=== PATIENT | male | born 1950 | race African-American/Black ===

== ENCOUNTER 2019-07-14 03:04 | Emergency (ER) | payer MEDICARE ==
[2019-07-14 03:27] LABS: ABSOLUTE EOSINOPHILS # (AUTO) 0.1 10^3/uL (0.0-0.6); ABSOLUTE MONOCYTES (AUTO) 0.9 10^3/uL (0.1-1.4); ABSOLUTE NEUT (AUTO) 2.1 10^3/uL (1.7-8.2); BASOPHILS % (AUTO) 0.8 % (0-2); EOSINOPHILS % (AUTO) 2.6 % (0-6); HEMATOCRIT 42.9 % (37.9-51.0); LYMPHOCYTES % (AUTO) 38.4 % (13-45); MEAN CORPUSCULAR HEMOGLOBIN 29.6 pg (27.0-33.4); MEAN CORPUSCULAR HGB CONC 32.6 g/dL (32.0-36.0); MEAN CORPUSCULAR VOLUME 91 fl (80-97); MONOCYTES % (AUTO) 16.8 % (3-13); PLATELET COUNT 259 10^3/uL (150-450); RED BLOOD COUNT 4.71 10^6/uL (4.35-5.55); RED CELL DISTRIBUTION WIDTH 13.8 % (11.5-14.0); SEGMENTED NEUTROPHILS % (AUTO) 41.4 % (42-78); TOTAL CELLS COUNTED % (AUTO) 100 %; WHITE BLOOD COUNT 5.1 10^3/uL (4.0-10.5)
[2019-07-14 03:35] LABS: PROTHROMBIN TIME 12.5 SEC (11.4-15.4)
[2019-07-14 03:36] LABS: INTERNATIONAL RATION (INR) 0.93; PARTIAL THROMBOPLASTIN TIME 28.1 SEC (23.5-35.8)
--- NOTE | 2019-07-14 03:41 | RADIOLOGY REPORT (SQ) ---
EXAM DESCRIPTION: CT HEAD WITHOUT IV CONTRAST COMPLETED DATE/TME: 07/14/2019 03:10 CLINICAL HISTORY: 68 years Male, stoke like symptoms COMPARISON: None. TECHNIQUE: No contrast. Coronal and sagittal reformat. This exam was performed according to our departmental dose-optimization program, which includes automated exposure control, adjustment of the mA and/or kV according to patient size and/or use of iterative reconstruction technique. FINDINGS: No hemorrhage. Small encephalomalacia-infarct of the right parietal lobe. No mass, mass effect, or midline shift. Confluent white matter microangiopathy, parenchymal volume loss, and atherosclerosis. Brain and extra-axial structures appear otherwise intact. IMPRESSION: No acute findings. Small encephalomalacia-infarct of the right parietal lobe.
[2019-07-14] MEDS ORDERED: ALTEPLASE INJ 100 MG VIAL ONE (03:43)
[2019-07-14] MEDS ORDERED: LABETALOL HCL INJ 20 MG/4 ML DISP.SYRIN IV ONE ×3 (03:49→04:03)
[2019-07-14] MEDS ORDERED: ALTEPLASE INJ 100 MG VIAL IV ONE (03:55)
[2019-07-14 04:15] LABS: ALBUMIN 3.9 g/dL (3.5-5.0); ALKALINE PHOSPHATASE 67 U/L (38-126); ANION GAP 11 (5-19); ASPARTATE AMINO TRANSFERASE 13 U/L (17-59); BILIRUBIN,DIRECT 0.1 mg/dL (0.0-0.4); BILIRUBIN,TOTAL 0.3 mg/dL (0.2-1.3); BLOOD UREA NITROGEN 22 mg/dL (7-20); CALCIUM 8.3 mg/dL (8.4-10.2); CARBON DIOXIDE 23 mmol/L (22-30); CHLORIDE 100 mmol/L (98-107); CREATINE KINASE 154 U/L (55-170); GLUCOSE 257 mg/dL (75-110); POTASSIUM 4.5 mmol/L (3.6-5.0); TOTAL PROTEIN 6.7 g/dL (6.3-8.2)
--- NOTE | 2019-07-14 04:18 | RADIOLOGY REPORT (SQ) ---
EXAM DESCRIPTION: XR CHEST 1 VIEW COMPLETED DATE/TME: 07/14/2019 03:10 CLINICAL HISTORY: 68 years Male, stoke like symptoms COMPARISON: None. NUMBER OF VIEWS/TECHNIQUE: 1/AP FINDINGS: Moderate lung volume, clear parenchyma, normal cardiac silhouette, and intact bony thorax. IMPRESSION: No acute cardiopulmonary findings.
--- NOTE | 2019-07-14 04:21 | ER Document Report ---
ED General - General Chief Complaint: S/S of Possible Stroke Stated Complaint: DIABETIC PROBLEM Time Seen by Provider: 07/14/19 03:13 - HPI Notes: 68-year-old male presents as a possible code stroke. Patient was brought by EMS. At approximately 0200 hrs., he had sudden onset of complete inability to speak. No fall, no injury. No stated weakness or numbness. Brought by EMS for a "diabetic emergency". Apparently the patient was in [place] and underwent cardiac catheterization via a right radial approach this past . Ultimately, cath was unremarkable according to his daughter, there was no intervention. On Tuesday he underwent a stress test that was read as abnormal which generated the admission to the hospital and subsequent cardiac cath. Apparently they have taken him off of his metformin and switched him over to insulin during this period, however, he forgot his insulin in [place] and has been off of it. He otherwise has had no trauma. No other significant surgeries. Does not use anticoagulants. No history of prior stroke. History is limited by his dense expressive aphasia. Past Medical History - Social History Smoking Status: Unknown if Ever Smoked Drug Abuse: None Family History: Reviewed & Not Pertinent - Medical History Notes: Includes hypertension, high cholesterol Review of Systems - Review of Systems -: Yes ROS unobtainable due to patient's medical condition Physical Exam - Vital signs Vitals: Resp Pulse Ox 22 H 99 07/14/19 03:08 07/14/19 03:08 - Notes Notes: General: Well developed . HEENT: Normocephalic, atraumatic. Pupils equal round reactive to light. No JVD. Chest: No trauma. Respiratory: Good air exchange, normal excursion. Cardiac: Regular rhythm. No murmurs or gallops. Abdomen: Soft, benign. Nondistended. Nontender. Back: No asymmetry or gross abnormality. Motor: Grossly normal power and tone. Neurologic: Appears grossly alert, obeys complex commands. No extinction or neglect or parietal signs noted. Visual shay are similar to the examiner on confrontation. Sensation appears intact and symmetric in all 4 extremities. No cerebellar signs including finger-nose testing. DTRs are 1+ and symmetric. Patient has a dense complete expressive aphasia. NIH stroke scale is calculated at 3 Vascular: Well perfused. Normal peripheral pulses. Skin: No petechiae or purpura. Course - Re-evaluation Re-evalutation: 07/14/19 04:18 68-year-old male presents with acute onset of dense complete expressive aphasia, certainly appears to be consistent with acute onset stroke and meets code stroke criteria. Patient is taken emergently to CT, CT is reviewed there is no evidence of acute bleed. Ultimate read shows a small area of hypodensity in the right parietal region. Patient was noted to have some intermittent hypertension above 185 systolic, he is responded to labetalol dosing prior to administration of TPA. Review of current labs show unremarkable chemistries with the exception of modest hyperglycemia. CBC unremarkable, coags normal. Chest x-ray unremarkable. Patient meets criteria for lytics, given the substantial debilitation his deficit could cause, I had a lengthy discussion with his family members with regard to the risks and benefits of lytic therapy including intracranial hemorrhage, worsening disability or even . After extensive discussion, we have elected to proceed with lytic therapy. I did discuss case with Dr. Sheridan from [facility] with regard to transfer, he felt the patient will be best served by transfer to [facility] for continued work-up and evaluation of possible large vessel occlusion. During his course with wi thus far, patient has had no change in his underlying condition. 07/14/19 04:54 Patient has had no change, TPA infusing, being transported now. Remained stable. - Vital Signs Vital signs: Temp Pulse Resp BP Pulse Ox 19 154/77 H 96 07/14/19 04:47 07/14/19 04:48 07/14/19 04:47 - Laboratory Result Diagrams: 07/14/19 03:20 07/14/19 03:45 Laboratory results interpreted by me: 07/14/19 07/14/19 07/14/19 03:15 03:20 03:45 [place] % (Auto) 16.8 H Seg Neutrophils % 41.4 L Sodium 134.0 L BUN 22 H Creatinine 1.49 H Est GFR ( Amer) 56 L Est GFR (MDRD) Non-Af 47 L Glucose 257 H POC Glucose 263 H Calcium 8.3 L AST 13 L - EKG Interpretation by Ga EKG shows normal: Sinus rhythm, [place], Intervals, QRS Complexes - Nonspecific ST- T changes Critical Care Note - Critical Care Note Total time excluding time spent on procedures (mins): 40 Comments: Exclusive of time spent perform procedures. Does include time spent arranging transfer, discussion with consultants, ministration of lytics and management of acute CVA. Discharge - Discharge Clinical Impression: Stroke Qualifiers: CVA mechanism: other Qualified Code(s): I63.89 - Other cerebral infarction Condition: Serious Disposition: [facility]
[2019-07-14 04:26] LABS: CREATINE KINASE MB 0.64 ng/mL (<4.55)
[2019-07-14 04:30] LABS: TROPONIN I < 0.012 ng/mL
[2019-07-14 04:51] VITALS: BP 154/77
--- NOTE | 2019-07-14 13:07 | EKG REPORT ---
SEVERITY:- ABNORMAL ECG - SINUS RHYTHM RBBB AND LAFB : Confirmed by: Maria Luisa Morrissey MD 14-Jul-2019 13:06:35
== END 2019-07-14 05:00 | disposition short-term general hospital (02) ==
LOC: ER 03:04
DX: I63.89 Other cerebral infarction (principal); R47.9 Unspecified speech disturbances; E11.9 Type 2 diabetes mellitus without complications
CPT/HCPCS: 93005; 36415; 82553; 82962; 82550; 85025; 85610; 85730; 80053; 84484; 71045; 70450; 93010; J3490; J2997; 96374; 96375; 99291

== ENCOUNTER 2019-07-22 12:13 | Emergency (ER) | payer OTHER, MEDICARE ==
--- NOTE | 2019-07-22 12:24 | ER Document Report ---
ED Medical Screen (RME) - General Chief Complaint: Abdominal Pain Stated Complaint: BOWEL ISSUE Time Seen by Provider: 07/22/19 12:21 Mode of Arrival: Ambulatory Information source: Patient, Relative Notes: 68-year-old male presented to ED for complaint of abdominal pain and no bowel movement for about 30 days. He states he took mag citrate this morning and a fleets enema on and still has not had a bowel movement. He was seen in this hospital last Tuesday for stroke and transferred to [facility]. Son states he has been nonverbal since the stroke and he came home from the hospital on Tuesday. Son states he was with him during this admission and he did not not see a bowel movement while he was there and the patient states he was aware and he did not have a bowel movement. Patient is answering questions by shaking his head but not able to talk. Son states he writes answers on a pad or nods or shakes his head. I have greeted and performed a rapid initial assessment of this patient. A comprehensive ED assessment and evaluation of the patient, analysis of test results and completion of medical decision making process will be conducted by an additional ED providers. Past Medical History Endocrine Medical History: Reports: Hx Diabetes Mellitus Type 2 Past Surgical History: Reports: Hx Cardiac Catheterization
--- NOTE | 2019-07-22 12:51 | RADIOLOGY REPORT (SQ) ---
EXAM DESCRIPTION: ACUTE ABDOMEN SERIES COMPLETED DATE/TIME: 07/22/2019 12:36 pm REASON FOR STUDY: constipaiton abdominal pain COMPARISON: None. NUMBER OF VIEWS: Three views. TECHNIQUE: Frontal chest, supine abdomen and upright/decubitus abdomen radiographic images acquired. LIMITATIONS: None. FINDINGS: CHEST: Lungs clear of infiltrates. FREE AIR: None. No abnormal gas collections. BOWEL GAS PATTERN: No dilated small bowel loops identified. Multiple air fluid levels throughout the nondilated colon which contains contrast material. No significant stool burden. CALCIFICATIONS: No suspicious calcifications. HARDWARE: None in the abdomen. SOFT TISSUES: No gross mass or suggestion of organomegaly. BONES: No acute fracture. No worrisome bone lesions. OTHER: No other significant finding. IMPRESSION: No dilated small bowel loops identified. Multiple air fluid levels throughout the nondi lated colon which contains contrast material. No significant stool burden. TECHNICAL DOCUMENTATION: JOB ID: [id number] [place]-72 2010 [employer]- All Rights Reserved Reading location - IP/workstation name: [email or web address]
[2019-07-22 13:25] LABS: ABSOLUTE BASOPHILS # (AUTO) 0.1 10^3/uL (0.0-0.2); ABSOLUTE EOSINOPHILS # (AUTO) 0.1 10^3/uL (0.0-0.6); ABSOLUTE LYMPHOCYTES (AUTO) 1.8 10^3/uL (0.5-4.7); ABSOLUTE MONOCYTES (AUTO) 0.6 10^3/uL (0.1-1.4); ABSOLUTE NEUT (AUTO) 3.6 10^3/uL (1.7-8.2); BASOPHILS % (AUTO) 0.9 % (0-2); EOSINOPHILS % (AUTO) 1.2 % (0-6); HEMATOCRIT 40.8 % (37.9-51.0); HEMOGLOBIN 14.1 g/dL (13.5-17.0); LYMPHOCYTES % (AUTO) 29.6 % (13-45); MEAN CORPUSCULAR HGB CONC 34.7 g/dL (32.0-36.0); MEAN CORPUSCULAR VOLUME 90 fl (80-97); MONOCYTES % (AUTO) 9.7 % (3-13); PLATELET COUNT 380 10^3/uL (150-450); RED BLOOD COUNT 4.56 10^6/uL (4.35-5.55); RED CELL DISTRIBUTION WIDTH 13.6 % (11.5-14.0); SEGMENTED NEUTROPHILS % (AUTO) 58.6 % (42-78); TOTAL CELLS COUNTED % (AUTO) 100 %; WHITE BLOOD COUNT 6.2 10^3/uL (4.0-10.5)
[2019-07-22 13:40] LABS: APPEARANCE,URINE CLEAR; BILIRUBIN,URINE NEGATIVE (NEGATIVE); COLOR,URINE YELLOW; GLUCOSE, URINE 50 mg/dL (NEGATIVE); KETONES,URINE NEGATIVE (NEGATIVE); PROTEIN,URINE 30 mg/dL (NEGATIVE); URINE SPECIFIC GRAVITY 1.019; UROBILINOGEN,URINE NEGATIVE mg/dL (<2.0)
[2019-07-22 13:45] LABS: ALBUMIN 4.3 g/dL (3.5-5.0); ALKALINE PHOSPHATASE 82 U/L (38-126); ANION GAP 12 (5-19); ASPARTATE AMINO TRANSFERASE 27 U/L (17-59); BILIRUBIN,DIRECT 0.1 mg/dL (0.0-0.4); BILIRUBIN,TOTAL 0.4 mg/dL (0.2-1.3); BLOOD UREA NITROGEN 18 mg/dL (7-20); CALCIUM 9.2 mg/dL (8.4-10.2); CARBON DIOXIDE 22 mmol/L (22-30); CHLORIDE 105 mmol/L (98-107); GLUCOSE 111 mg/dL (75-110); POTASSIUM 4.8 mmol/L (3.6-5.0); TOTAL PROTEIN 7.4 g/dL (6.3-8.2)
[2019-07-22 13:48] LABS: URIC ACID CRYSTALS,URINE FEW /HPF
--- NOTE | 2019-07-22 14:28 | RADIOLOGY REPORT (SQ) ---
EXAM DESCRIPTION: CT ABD/PELVIS WITH IV ONLY COMPLETED DATE/TIME: 07/22/2019 2:09 pm REASON FOR STUDY: general pain COMPARISON: Recent radiographs TECHNIQUE: CT scan of the abdomen and pelvis performed using helical scanning technique with dynamic intravenous contrast injection. No oral contrast. Images reviewed with lung, soft tissue, and bone windows. Reconstructed coronal and sagittal MPR images reviewed. Delayed images for evaluation of the urinary system also acquired. All images stored on PACS. All CT scanners at this facility use dose modulation, iterative reconstruction, and/or weight based d osing when appropriate to reduce radiation dose to as low as reasonably achievable (ALARA). [facility]: Dose Right [facility]: CareDose [facility]: Dose Right [facility]: Teradose 4D [facility]: 265 Network CONTRAST TYPE AND DOSE: contrast/concentration: Isovue 350.00 mg/ml; Total Contrast Delivered: 69.0 ml; Total Saline Delivered: 62.0 ml RENAL FUNCTION: GFR > 60. RADIATION DOSE: CT Rad equipment meets quality standard of care and radiation dose reduction techniq ues were employed. CTDIvol: 6.3 - 8.8 mGy. DLP: 792 mGy-cm.. LIMITATIONS: None. FINDINGS: LOWER CHEST: No significant findings. No nodules or infiltrates. LIVER: Normal size. No masses. No dilated ducts. SPLEEN: Normal size. No focal lesions. PANCREAS: No masses. No significant calcifications. No adjacent inflammation or peripancreatic fluid collections. Pancreatic duct not dilated. GALLBLADDER: No identified stones by CT criteria. No inflammatory changes to suggest cholecystitis. ADRENAL GLANDS: No significant masses or asymmetry. RIGHT KIDNEY AND URETER: No stones or obstruction identified. No suspicious mass. Mild scarring in the inferior pole. LEFT KIDNEY AND URETER: No solid masses. No significant calcification. No hydronephrosis or hydrouret er. AORTA AND VESSELS: No aneurysm. No dissection. Renal arteries, SMA, celiac without stenosis. RETROPERITONEUM: No retroperitoneal adenopathy, hemorrhage or masses. BOWEL AND PERITONEAL CAVITY: Large bowel looks generally normal. No mechanical bowel obstruction, mi nimal fluid distention of distal small bowel loops. Appendix looks slightly thickened but nondilated and without significant inflammatory change. Transverse dimension at 8 mm with minimal density at t he tip of the appendix which likely represents a stone. APPENDIX: As above. PELVIS: No mass. No free fluid. Normal bladder. ABDOMINAL WALL: No masses. No hernias. BONES: No significant or acute findings. OTHER: No other significant finding. IMPRESSION: 1. Minimal ileus. 2. Slight thickening of the appendix with an appendix tip appendicolith suggested. No mass or acute appendicitis evident, however. TECHNICAL DOCUMENTATION: JOB ID: [id number] Quality ID # [id number]: Final reports with documentation of one or more dose reduction techniques (e.g., Au tomated exposure control, adjustment of the mA and/or kV according to patient size, use of iterative reconstruction technique) 2010 [employer]- All Rights Reserved Reading location - IP/workstation name: [email or web address]
[2019-07-22] MEDS ORDERED: RINGERS SOLUTION,LACTATED 1,000 ML IV ONE (14:46)
--- NOTE | 2019-07-22 15:29 | ER Document Report ---
ED GI/ - General Chief Complaint: Abdominal Pain Stated Complaint: BOWEL ISSUE Time Seen by Provider: 07/22/19 12:21 Primary Care Provider: GARCIA,LAURA [Primary Care Provider] - Follow up as needed Mode of Arrival: Ambulatory Notes: Patient is a 68-year-old male presents the emergency department for not having a bowel movement" 30 days." Patient recently suffered from a CVA. He is current ly nonverbal. Was discharged from [facility] on Tuesday. States on did perform a fleets enema without bowel movement. States today did drink magnesium citrate again without a bowel movement. Son presents to the emergency department with the patient worried patient may have a bowel obstruction. Patient shakes his head no when I ask if he is having any pain. Son voices small amount of "looked like just water" per rectum this morning. Patient and son are denying any nausea or vomiting. - Related Data Allergies/Adverse Reactions: No Known Allergies Allergy (Unverified 07/22/19 12:22) Past Medical History - General Information source: Patient, Relative - Social History Smoking Status: Never Smoker Chew tobacco use (# tins/day): No Frequency of alcohol use: None Drug Abuse: None Family History: Reviewed & Not Pertinent Patient has suicidal ideation: No Patient has homicidal ideation: No Endocrine Medical History: Reports: Hx Diabetes Mellitus Type 2 Past Surgical History: Reports: Hx Cardiac Catheterization Review of Systems - Review of Systems Constitutional: denies: Fever EENT: No symptoms reported Cardiovascular: No symptoms reported Respiratory: No symptoms reported Gastrointestinal: See HPI Genitourinary: No symptoms reported Male Genitourinary: No symptoms reported Musculoskeletal: No symptoms reported Skin: No symptoms reported Hematologic/Lymphatic: No symptoms reported Neurological/Psychological: No symptoms reported Physical Exam - Vital signs Vitals: Temp Pulse Resp BP Pulse Ox 98.2 F 92 16 194/74 H 97 07/22/19 12:22 07/22/19 12:22 07/22/19 12:22 07/22/19 12:22 07/22/19 12:22 - Notes Notes: GENERAL: Alert, interacts well. No acute distress. Nonverbal, shaking head yes and no or writing things down without difficulty. HEAD: Normocephalic, atraumatic. EYES: Pupils equal, round, and reactive to light. Extraocular movements intact. ENT: Oral mucosa moist, tongue midline. NECK: Full range of motion. Supple. Trachea midline. LUNGS: Clear to auscultation bilaterally, no wheezes, rales, or rhonchi. No respiratory distress. HEART: Regular rate and rhythm. No murmur ABDOMEN: Soft, non-tender. Non-distended. Bowel sounds present in all 4 quadrants. EXTREMITIES: Moves all 4 extremities spontaneously. No edema, normal radial and dorsalis pedis pulses bilaterally. No cyanosis. BACK: no cervical, thoracic, lumbar midline tenderness. No saddle anesthesia, normal distal neurovascular exam. NEUROLOGICAL: Alert and oriented x3. SKIN: Warm, dry, normal turgor. No rashes or lesions noted. Course - Re-evaluation Re-evalutation: Laboratory 07/22/19 07/22/19 07/22/19 12:37 13:00 13:00 WBC 6.2 RBC 4.56 Hgb 14.1 Hct 40.8 MCV 90 MCH 31.0 MCHC 34.7 RDW 13.6 Plt Count 380 Lymph % (Auto) 29.6 [place] % (Auto) 9.7 Eos % (Auto) 1.2 Baso % (Auto) 0.9 Absolute Neuts (auto) 3.6 Absolute Lymphs (auto) 1.8 Absolute Monos (auto) 0.6 Absolute Eos (auto) 0.1 Absolute Basos (auto) 0.1 Seg Neutrophils % 58.6 Sodium 138.5 Potassium 4.8 Chloride 105 Carbon Dioxide 22 Anion Gap 12 BUN 18 Creatinine 1.34 H Est GFR ( Amer) > 60 Est GFR (MDRD) Non-Af 53 L Glucose 111 H POC Glucose Lactic Acid Calcium 9.2 Total Bilirubin 0.4 Direct Bilirubin 0.1 Neonat Total Bilirubin Not Reportable Neonat Direct Bilirubin Not Reportable Neonat Indirect Bili Not Reportable AST 27 ALT 19 Alkaline Phosphatase 82 Total Protein 7.4 Albumin 4.3 Lipase 711.1 H Urine Color YELLOW Urine Appearance CLEAR Urine pH 5.0 Ur Specific [place] 1.019 Urine Protein 30 H Urine Glucose (UA) 50 H Urine Ketones NEGATIVE Urine Blood NEGATIVE Urine Nitrite (Reflex) NEGATIVE Urine Bilirubin NEGATIVE Urine Urobilinogen NEGATIVE Leukocyte Esterase Rfl NEGATIVE Uric Acid Cryst (Auto) FEW Urine Ascorbic Acid NEGATIVE 07/22/19 07/22/19 13:47 14:41 WBC RBC Hgb Hct MCV MCH MCHC RDW Plt Count Lymph % (Auto) [place] % (Auto) Eos % (Auto) Baso % (Auto) Absolute Neuts (auto) Absolute Lymphs (auto) Absolute Monos (auto) Absolute Eos (auto) Absolute Basos (auto) Seg Neutrophils % Sodium Potassium Chloride Carbon Dioxide Anion Gap BUN Creatinine Est GFR ( Amer) Est GFR (MDRD) Non-Af Glucose POC Glucose 92 Lactic Acid 0.7 Calcium Total Bilirubin Direct Bilirubin Neonat Total Bilirubin Neonat Direct Bilirubin Neonat Indirect Bili AST ALT Alkaline Phosphatase Total Protein Albumin Lipase Urine Color Urine Appearance Urine pH Ur Specific [place] Urine Protein Urine Glucose (UA) Urine Ketones Urine Blood Urine Nitrite (Reflex) Urine Bilirubin Urine Urobilinogen Leukocyte Esterase Rfl Uric Acid Cryst (Auto) Urine Ascorbic Acid Acute Abdomen Series 07/22/19 12:24 IMPRESSION: No dilated small bowel loops identified. Multiple air fluid levels throughout the nondilated colon which contains contrast material. No significant stool burden. Abdomen/Pelvis CT 07/22/19 12:53 IMPRESSION: 1. Minimal ileus. 2. Slight thickening of the appendix with an appendix tip appendicolith suggested. No mass or acute appendicitis evident, however. I performed a rectal exam at bedside, licensed nurse practitioner Cherry RN, rectal vault non- impacted, no stool felt. No anal fissures or hemorrhoids noted. No melena noted . Patient has been able to drink fluids without any vomiting. Patient continues without any abdominal pain. Discussed use of clear liquids over the next couple of days. Also discussed use of MiraLAX to prevent constipation. Discussed close follow-up with primary care provider, and return precautions, patient stable for discharge. - Vital Signs Vital signs: Temp Pulse Resp BP Pulse Ox 98.2 F 67 18 154/71 H 98 07/22/19 12:22 07/22/19 16:25 07/22/19 16:25 07/22/19 16:25 07/22/19 16:25 - Laboratory Result Diagrams: 07/22/19 13:00 07/22/19 13:00 Laboratory results interpreted by me: 07/22/19 07/22/19 12:37 13:00 Creatinine 1.34 H Est GFR (MDRD) Non-Af 53 L Glucose 111 H Lipase 711.1 H Urine Protein 30 H Urine Glucose (UA) 50 H Discharge - Discharge Clinical Impression: Ileus Condition: Stable Disposition: HOME, SELF-CARE Additional Instructions: As we discussed you have been seen and treated in the emergency department for an ileus. This is a minor twisting of your bowels. You super taking clear liquids for the next couple of days. Patient also follow-up with your primary care provider in the next 12 to 24 hours. Should you develop any abdominal pain should immediately return to the emergency room. Should you develop any vomiting he should immediately return to the emergency room. Please also return to the emergency department for any other concerns. Referrals: [facility] [Primary Care Provider] - Follow up as needed
[2019-07-22 16:26] VITALS: BP 154/71
== END 2019-07-22 16:27 | disposition home or self-care (01) ==
LOC: ER 12:13
DX: K56.7 Ileus, unspecified (principal); R10.9 Unspecified abdominal pain; E11.9 Type 2 diabetes mellitus without complications
CPT/HCPCS: 99284; 36415; 82962; 83605; 83690; 85025; 80053; 81001; 74022; 74177; J7120

== ENCOUNTER 2019-07-26 11:12 | Emergency (ER) | payer OTHER, MEDICARE ==
--- NOTE | 2019-07-26 11:34 | ER Document Report ---
ED Medical Screen (RME) - General Chief Complaint: Numbness of Arm Stated Complaint: NUMBNESS LEFT ARM AND LEG Time Seen by Provider: 07/26/19 11:27 Primary Care Provider: [facility] [Primary Care Provider] - Follow up as needed Mode of Arrival: Ambulatory Information source: Patient Notes: 68-year-old male presents to ED for numbness and tingling to the left arm with mild droop to the right side of the face. He states he has had a previous stroke and was sent to [facility]. He states his last stroke was about 20 days ago. He was seen last week for constipation and had scans done and was discharged home.. He states he is having more numbness and tingling than before. I have greeted and performed a rapid initial assessment of this patient. A comprehensive ED assessment and evaluation of the patient, analysis of test results and completion of medical decision making process will be conducted by an additional ED providers. - Related Data Allergies/Adverse Reactions: No Known Allergies Allergy (Unverified 07/22/19 12:22) Past Medical History Endocrine Medical History: Reports: Hx Diabetes Mellitus Type 2 Past Surgical History: Reports: Hx Cardiac Catheterization Physical Exam - Vital signs Vitals: Temp Pulse Resp BP Pulse Ox 99.2 F 86 16 148/64 H 95 07/26/19 11:20 07/26/19 11:20 07/26/19 11:20 07/26/19 11:20 07/26/19 11:20 Course - Vital Signs Vital signs: Temp Pulse Resp BP Pulse Ox 99.2 F 86 16 148/64 H 95 07/26/19 11:20 07/26/19 11:20 07/26/19 11:20 07/26/19 11:20 07/26/19 11:20 Doctor's Discharge - Discharge Referrals: [facility] [Primary Care [facility]] - Follow up as needed
--- NOTE | 2019-07-26 11:59 | RADIOLOGY REPORT (SQ) ---
EXAM DESCRIPTION: CT HEAD WITHOUT COMPLETED DATE/TIME: 07/26/2019 11:48 am REASON FOR STUDY: Increased numbness to left arm recent stroke COMPARISON: 07/14/2019 TECHNIQUE: Axial images acquired through the brain without intravenous contrast. Images reviewed wi th bone, brain and subdural windows. Additional sagittal and coronal reconstructions were generated. Images stored on PACS. All CT scanners at this facility use dose modulation, iterative reconstruction, and/or weight based d osing when appropriate to reduce radiation dose to as low as reasonably achievable (ALARA). [facility]: Dose Right [facility]: CareDose [facility]: Dose Right [facility]: Teradose 4D [facility]: [employer] RADIATION DOSE: CT Rad equipment meets quality standard of care and radiation dose reduction techniq ues were employed. CTDIvol: 53.2 mGy. DLP: 1070 mGy-cm.mGy. LIMITATIONS: None. FINDINGS: VENTRICLES: Prominent. CEREBRUM: No masses. No hemorrhage. No midline shift. Areas of low density in the white matter mos t likely due to chronic micro-vascular ischemic change. 1.5 cm focus of high attenuation in the left frontal lobe. No mass effect. CEREBELLUM: No masses. No hemorrhage. No alteration of density. No evidence for acute infarction. EXTRAAXIAL SPACES: Age-related involutional change. No fluid collections. No masses. ORBITS AND GLOBE: No intra- or extraconal masses. Normal contour of globe without masses. CALVARIUM: No fracture. PARANASAL SINUSES: No fluid or mucosal thickening. SOFT TISSUES: No mass or hematoma. OTHER: No other significant finding. IMPRESSION: Small hemorrhagic infarct left frontal lobe. EVIDENCE OF ACUTE STROKE: YES. LEFT MCA. COMMENT: Pertinent findings on the imaging study reported as a CRITICAL RESULT to TIANA HERNY NP at11:52 on 07/26/2019. Category of Critical Result: Hemorrhagic stroke. TECHNICAL DOCUMENTATION: JOB ID: [id number] Quality ID # [id number]: Final reports with documentation of one or more dose reduction techniques (e.g., Au tomated exposure control, adjustment of the mA and/or kV according to patient size, use of iterative reconstruction technique) 2010 [employer]- All Rights Reserved Reading location - IP/workstation name: [email or web address]
[2019-07-26 12:00] LABS: APPEARANCE,URINE CLEAR; BILIRUBIN,URINE NEGATIVE (NEGATIVE); COLOR,URINE YELLOW; GLUCOSE, URINE NEGATIVE (NEGATIVE); KETONES,URINE NEGATIVE (NEGATIVE); PROTEIN,URINE NEGATIVE (NEGATIVE); URINE SPECIFIC GRAVITY 1.009; UROBILINOGEN,URINE NEGATIVE mg/dL (<2.0)
[2019-07-26 12:02] VITALS: BP 156/72
[2019-07-26 12:10] LABS: ABSOLUTE EOSINOPHILS # (AUTO) 0.1 10^3/uL (0.0-0.6); ABSOLUTE LYMPHOCYTES (AUTO) 1.6 10^3/uL (0.5-4.7); ABSOLUTE MONOCYTES (AUTO) 0.6 10^3/uL (0.1-1.4); ABSOLUTE NEUT (AUTO) 3.8 10^3/uL (1.7-8.2); BASOPHILS % (AUTO) 0.6 % (0-2); EOSINOPHILS % (AUTO) 2.1 % (0-6); HEMATOCRIT 40.3 % (37.9-51.0); HEMOGLOBIN 13.7 g/dL (13.5-17.0); LYMPHOCYTES % (AUTO) 26.5 % (13-45); MEAN CORPUSCULAR HEMOGLOBIN 30.4 pg (27.0-33.4); MEAN CORPUSCULAR HGB CONC 33.9 g/dL (32.0-36.0); MEAN CORPUSCULAR VOLUME 90 fl (80-97); MONOCYTES % (AUTO) 9.7 % (3-13); PLATELET COUNT 368 10^3/uL (150-450); RED BLOOD COUNT 4.49 10^6/uL (4.35-5.55); RED CELL DISTRIBUTION WIDTH 13.5 % (11.5-14.0); SEGMENTED NEUTROPHILS % (AUTO) 61.1 % (42-78); TOTAL CELLS COUNTED % (AUTO) 100 %; WHITE BLOOD COUNT 6.2 10^3/uL (4.0-10.5)
[2019-07-26] MEDS ORDERED: LEVETIRACETAM 1000 MG/NACL-ISO 1,000 MG/100 ML RTUPB IV ONE (12:21)
[2019-07-26] MEDS ORDERED: TRANEXAMIC ACID INJ/PF 1,000 MG/10 ML SDV IV ONE (12:21)
[2019-07-26 12:22] LABS: ALBUMIN 4.3 g/dL (3.5-5.0); ALKALINE PHOSPHATASE 70 U/L (38-126); ANION GAP 14 (5-19); ASPARTATE AMINO TRANSFERASE 22 U/L (17-59); BILIRUBIN,DIRECT 0.1 mg/dL (0.0-0.4); BILIRUBIN,TOTAL 0.3 mg/dL (0.2-1.3); BLOOD UREA NITROGEN 19 mg/dL (7-20); CALCIUM 10.1 mg/dL (8.4-10.2); CARBON DIOXIDE 23 mmol/L (22-30); CHLORIDE 102 mmol/L (98-107); GLUCOSE 81 mg/dL (75-110); POTASSIUM 4.7 mmol/L (3.6-5.0); TOTAL PROTEIN 7.2 g/dL (6.3-8.2)
--- NOTE | 2019-07-26 12:35 | ER Document Report ---
ED Alteplase Inc/Exc Criteria - Inclusion Criteria: 1: Patient presented to ED within 3 hours of acute ischemic stroke symptom onset? -: No 2: Did baseline CT exclude intracranial hemorrhage and/or other risk factors? -: No 3: Is the age of the patient 18 years of age or greater? -: Yes : If any of the above questions are answered "NO" then stop, patient is not a candidate for Alteplase, : If all of the above questions are answered "YES" then continue with Exclusion Criteria. - Exclusion Criteria: 1: Is there evidence of intracranial hemorrhage on baseline CT? 2: Is there suspicion of subarachnoid hemorrhage (even if CT negative)? 3: Is there a history of serious head trauma, recent previous stroke or IA within 3 months? 4: Does the patient have a clinical presentation consistent with IA or post-IA pericarditis? 5: Is there history of intracranial hemorrhage? 6: On repeated measurement is Systolic BP greater than 185mmHg or Diastolic BP greater that 110 mmHg and is aggressive treatment needed to reduce blood pressure to these limits (e.g. constant infusion of an anti-hypertensive)? 7: Did the patient awake with stroke symptoms? 8: Has the patient had a lumbar puncture or an arterial puncture at a non- compressile site within 7 days? 9: With in the last 14 days did the patient have surgery or major trauma? 10: Is the patient or less than 2 weeks? 11: Was there any active bleeding or acute trauma? 12: Does the patient have intracranial neoplasm, arteriovenous malformation or aneurysm? 13: Does the patient have abnormal glucose (less than 50 or greater than 400mg/dl)? Record glucose in Comment. 14: Patient has rapidly improving symptoms at the time Alteplase is to be Administered. 15: Does the patient have any risks for bleeding, including but not limited to: a.: Current use of Coumadin with PT greater than 15 seconds or INR greater than 1.7. b.: Current use of Pradaxa (Dabigatran). c.: Heparin administereed within the past 48 hours and PTT elevated. d.: Platelet count less than 100,000/mm. e.: Major surgery or serious trauma within 14 days. f.: Gastrointestinal or gynecological urinary bleeding within 14 days. g.: Myocardial Infarction (IA) within 3 months. : If the answer to any of the above questions is "YES" then stop, the patient is not a candidate for Alteplase. : If the answer to all of the above questions is "NO" then the patient may be eligible for the Administration of Alteplase. : If the patient is noted to have seizure activity at onset of Stroke symptoms; Consult Neurologist for further evaluation. - The patient is: -: Included and is eligible to receive Alteplase. *Initiate bed placement at higher level of care* Reviewed risks & benefits of thrombolytic therapy: I have reviewed the risks and benefits of thrombolytic therapy with the patient and/or his/her family. -: Excluded and not eligible to receive Alteplase for the above exclusions. -: Excluded and not eligible to receive Alteplase for other reasons (specify in comments): - Diagnosis of TIA: -: Patient presented with transient symptoms that are now resolved and no other neurologic findings are currently present. List symptoms in comments. -: Patient is NOT a candidate for tPA. -: ____(put name in comment) has been consulted for admission and continued evaluation of risk factor assessment.
--- NOTE | 2019-07-26 18:41 | ER Document Report ---
Entered by HALEY RIVERS SCRIBE 07/26/19 1202 Acting as scribe for:ILA LANCASTER MD ED General - General Chief Complaint: S/S of Possible Stroke Stated Complaint: NUMBNESS LEFT ARM AND LEG Time Seen by Provider: 07/26/19 11:27 Primary Care Provider: GARCIA,LAURA [Primary Care Provider] - Follow up as needed Mode of Arrival: Medic Notes: Patient is a 68 year old male with history of a stroke on 07/14/19 presenting to the emergency department complaining of left sided numbness and tingling per family member at bedside. Family member at bedside states that patient woke up at 0500 complaining of left leg numbness, and then at 1000 he began having left arm tingling. Patient is aphasic at baseline since the CVA on 07/14. Family member states that he is more sluggish today than usual, and that he has right sided facial droop which has been present since the CVA on 07/14. Patient takes 81mg of baby aspirin daily. Family member states that that patient had a stress test done on 07/09/19, he had a cardiac catheterization that was normal on 07/12/19, then had the stroke on the . 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 He has no new motor deficits. He is not a TPA candidate. - Related Data Allergies/Adverse Reactions: No Known Allergies Allergy (Unverified 07/22/19 12:22) Past Medical History - General Information source: Patient - Social History Smoking Status: Never Smoker Cigarette use (# per day): No Chew tobacco use (# tins/day): No Frequency of alcohol use: None Drug Abuse: None Family History: Reviewed & Not Pertinent Patient has suicidal ideation: No Patient has homicidal ideation: No - Past Medical History Cardiac Medical History: Reports: Hx Coronary Artery Disease Endocrine Medical History: Reports: Hx Diabetes Mellitus Type 2 Past Surgical History: Reports: Hx Cardiac Catheterization Review of Systems - Review of Systems Notes: given by family member at bedside Constitutional: No symptoms reported EENT: No symptoms reported Cardiovascular: No symptoms reported Respiratory: No symptoms reported Gastrointestinal: No symptoms reported Genitourinary: No symptoms reported Male Genitourinary: No symptoms reported Musculoskeletal: No symptoms reported Skin: No symptoms reported Hematologic/Lymphatic: No symptoms reported Neurological/Psychological: See HPI, Weakness, Numbness, Tingling -: Yes All other systems reviewed and negative Physical Exam - Vital signs Vitals: Temp Pulse Resp BP Pulse Ox 99.2 F 86 16 148/64 H 95 07/26/19 11:20 07/26/19 11:20 07/26/19 11:20 07/26/19 11:20 07/26/19 11:20 - Notes Notes: Physical Exam: General: Alert, appears well. HEENT: Normocephalic. Atraumatic. PERRL. Extraocular movements intact. Oropharynx clear. Neck: Supple. Non-tender. Respiratory: No respiratory distress. Clear and equal breath sounds bilaterally. Cardiovascular: Regular rate and rhythm. Abdominal: Normal Inspection. Non-tender. No distension. Normal Bowel Sounds. Back: No gross abnormalities. Extremities: Moves all four extremities. Upper extremities: Normal inspection. Normal ROM. Lower extremities: Normal inspection. No edema. Normal ROM. Neurological: No motor deficits. Normal cognition. AAOx4. Right sided facial drooping. DTRs 1+ at the knees bilaterally. Expressive aphasia. Psychological: Normal affect. Normal Mood. Skin: Warm. Dry. Normal color. Course - Re-evaluation Re-evalutation: 07/26/19 12:33 Discussed the case with the on-call physician at [facility]. She recommended TXA 1 g IV, Keppra 1 g IV. 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 The excepting will be Dr. Buchanan. She did review the MRI done at [facility] and his acute infarct last week corresponds to the same location as the hemorrhagic conversion seen today. - Vital Signs Vital signs: Temp Pulse Resp BP Pulse Ox 99.2 F 78 20 156/72 H 97 07/26/19 11:20 07/26/19 11:55 07/26/19 12:00 07/26/19 12:00 07/26/19 12:00 - Laboratory Result Diagrams: 07/26/19 11:55 07/26/19 11:55 Laboratory results interpreted by me: 07/26/19 07/26/19 11:44 11:55 Creatinine 1.37 H Est GFR (MDRD) Non-Af 51 L Lipase 370.5 H Urine Ascorbic Acid 20 H - Diagnostic Test Radiology reviewed: Reports reviewed - Acute hemorrhagic infarct right posterior frontal region - EKG Interpretation by Me EKG shows normal: Sinus rhythm, Evant, Intervals, QRS Complexes, ST-T Waves Rate: Normal - 81 Rhythm: NSR Evant/QRS: RBBB, LAHB/LAFB When compared to previous EKG there are: No significant change Critical Care Note - Critical Care Note Total time excluding time spent on procedures (mins): 35 Discharge - Discharge Clinical Impression: Acute hemorrhagic infarction of brain Condition: Stable [facility]: [facility] [Primary [facility]] - Follow up as needed Scribe Attestation: 07/26/19 12:33 I personally performed the services described in the documentation, reviewed and edited the documentation which was dictated to the scribe in my presence, and it accurately records my words and actions. I personally performed the services described in the documentation, reviewed and edited the documentation which was dictated to the scribe in my presence, and it accurately records my words and actions.
--- NOTE | 2019-07-26 22:39 | EKG REPORT ---
SEVERITY:- ABNORMAL ECG - SINUS RHYTHM RBBB AND LAFB : Confirmed by: Lico Davalos 26-Jul-2019 22:38:51
== END 2019-07-26 12:53 | disposition short-term general hospital (02) ==
LOC: ER 11:12
DX: I62.9 Nontraumatic intracranial hemorrhage, unspecified (principal); R20.0 Anesthesia of skin; R20.2 Paresthesia of skin; R47.01 Aphasia; R29.810 Facial weakness; I45.2 Bifascicular block; I25.10 Atherosclerotic heart disease of native coronary artery without angina pectoris; E11.9 Type 2 diabetes mellitus without complications; Z79.82 Long term (current) use of aspirin
CPT/HCPCS: 93005; 99291; 96374; 96375; 36415; 83690; 85025; 80053; 81001; 70450; 93010; J1953; J3490

== ENCOUNTER 2019-08-19 09:25 | Emergency (ER) | payer MEDICARE ==
--- NOTE | 2019-08-19 10:32 | ER Document Report ---
ED General - General Chief Complaint: High Blood Pressure Stated Complaint: BLOOD PRESSURE ISSUES Time Seen by Provider: 08/19/19 09:54 Primary Care Provider: LAURA ZELAYA [Primary Care Provider] - Follow up as needed Notes: HPI: 69-year-old male with past medical history as recorded including 2 strokes. Patient has expressive aphasia from the stroke. He is able to answer all questions however with nodding. He has no baseline weakness to the arms or legs from the stroke. Family was concerned because the patient was taken off 1 of his blood pressure medications last week by the primary care physician. They are unsure what medication this was. Patient woke this morning with a mild frontal headache. No blurry vision. No slurred speech. No complaints of chest pain, abdominal pain, or leg swelling. No weakness or numbness to the arms or legs. The headache has resolved. They noticed that the patient's blood pressure was elevated this morning at 185/77. They did give the patient his morning blood pressure medications. Patient denies absolutely any headache at this time. ROS: See HPI All other review of systems reviewed and otherwise negative Reviewed vital signs and nursing note as charted by RN. PHYSICAL EXAM: CONSTITUTIONAL: Alert and follows all commands and answers all questions with nodding. Well-appearing; well-nourished HEAD: Normocephalic; atraumatic EYES: PERRL ENT: Normal nose; no rhinorrhea; moist mucous membranes; pharynx without lesions noted NECK: Supple without meningismus; non-tender CARD: Regular rate and rhythm; no murmurs; symmetric distal pulses RESP: Normal chest excursion without splinting or tachypnea; breath sounds clear and equal bilaterally ABD/GI: Normal bowel sounds; non-distended; soft, non-tender BACK: The back appears normal and is non-tender to palpation EXT: Normal ROM in all joints; non-tender to palpation; no edema SKIN: No acute lesions noted NEURO: CN 2-12 intact; 5/5 bilateral upper and lower extremity strength with sensation intact to light touch PSYCH: The patient's mood and manner are appropriate. Grooming and personal hygiene are appropriate. - Related Data Allergies/Adverse Reactions: No Known Allergies Allergy (Unverified 07/22/19 12:22) Past Medical History - Social History Smoking Status: Never Smoker Frequency of alcohol use: None Drug Abuse: None Family History: Reviewed & Not Pertinent Patient has suicidal ideation: No Patient has homicidal ideation: No - Past Medical History Cardiac Medical History: Reports: Hx Coronary Artery Disease Endocrine Medical History: Reports: Hx Diabetes Mellitus Type 2 Past Surgical History: Reports: Hx Cardiac Catheterization Physical Exam - Vital signs Vitals: Temp Pulse Resp BP Pulse Ox 98.1 F 87 16 171/70 H 99 08/19/19 09:33 08/19/19 09:33 08/19/19 09:33 08/19/19 09:33 08/19/19 09:33 Course - Re-evaluation Re-evalutation: 08/19/19 10:31 I had a very long discussion with the patient and family. Given that the patient's repeat blood pressure is much improved, the patient has absolutely no headache or blurry vision at this time, no weakness or numbness, with no other complaints, I do have a very low pretest probability for intracerebral hemorrhage. Patient and family agree. They understand the importance of strict return precautions and follow-up with the primary care physician that is scheduled for this Tuesday for reassessment of the patient's blood pressure medications. I believe this is a reasonable option to withhold the CT scan of the head at this time. - Vital Signs Vital signs: Temp Pulse Resp BP Pulse Ox 98.1 F 87 16 144/65 H 98 08/19/19 09:33 08/19/19 09:33 08/19/19 09:33 08/19/19 10:01 08/19/19 10:02 Discharge - Discharge Clinical Impression: Elevated blood pressure reading Headache Qualifiers: Headache type: unspecified Headache chronicity pattern: episodic headache Intractability: not intractable Qualified Code(s): R51 - Headache Condition: Good Disposition: HOME, SELF-CARE Additional Instructions: Come back immediately with any return of headache, weakness or numbness, change in mental status, fevers, vomiting, chest pain, or any other acute problems. Please make sure that he follows-up as scheduled with the primary care physician this week for reassessment of the patient's blood pressure on blood pressure medications. [facility]errals: [facility] [[facility]] - Follow up as needed
[2019-08-19 10:34] VITALS: BP 143/69
== END 2019-08-19 10:30 | disposition home or self-care (01) ==
LOC: ER 09:25
DX: I10 Essential (primary) hypertension (principal); Z79.899 Other long term (current) drug therapy; R51 Headache; I69.320 Aphasia following cerebral infarction; I25.10 Atherosclerotic heart disease of native coronary artery without angina pectoris; E11.9 Type 2 diabetes mellitus without complications
CPT/HCPCS: 99283

== ENCOUNTER 2020-08-02 17:42 | Emergency (ER) | payer OTHER, MEDICARE ==
--- NOTE | 2020-08-02 17:53 | ER Document Report ---
ED Medical Screen (RME) - General Chief Complaint: Flank Pain Stated Complaint: FLANK PAIN Time Seen by Provider: 08/02/20 17:48 Primary Care Provider: [facility] [[facility]] - Follow up as needed Mode of Arrival: Wheelchair Information source: Patient Notes: 69-year-old male presented to ED for flank pain with frequent urination patient is also a diabetic. He states his sugars have been running high. But he states his last one was a little over 300. Your blood urine CT abdomen pelvis and he will be seen by another provider. I have greeted and performed a rapid initial assessment of this patient. A comprehensive ED assessment and evaluation of the patient, analysis of test results and completion of medical decision making process will be conducted by an additional ED providers. TRAVEL OUTSIDE OF THE [place] IN LAST 30 DAYS: No - Related Data Allergies/Adverse Reactions: No Known Allergies Allergy (Unverified 07/22/19 12:22) Past Medical History - Past Medical History Cardiac Medical History: Reports: Hx Coronary Artery Disease Endocrine Medical History: Reports: Hx Diabetes Mellitus Type 2 Past Surgical History: Reports: Hx Cardiac Catheterization Course - Laboratory Laboratory results interpreted by me: 08/02/20 18:10 Urine Protein 100 H Urine Glucose (UA) 150 H Urine Blood LARGE H Ur Leukocyte Esterase LARGE H Doctor's Discharge - Discharge Referrals: [facility] [Primary [facility]] - Follow up as needed
[2020-08-02 18:29] LABS: APPEARANCE,URINE CLOUDY; BILIRUBIN,URINE NEGATIVE (NEGATIVE); COLOR,URINE YELLOW; GLUCOSE, URINE 150 mg/dL (NEGATIVE); KETONES,URINE NEGATIVE (NEGATIVE); LEUKOCYTE ESTERASE,URINE LARGE (NEGATIVE); NITRITE,URINE NEGATIVE (NEGATIVE); PROTEIN,URINE 100 mg/dL (NEGATIVE); URINE SPECIFIC GRAVITY 1.008; UROBILINOGEN,URINE NEGATIVE mg/dL (<2.0)
--- NOTE | 2020-08-02 18:33 | RADIOLOGY REPORT (SQ) ---
EXAM DESCRIPTION: CT ABD/PELVIS NO ORAL OR IV IMAGES COMPLETED DATE/TIME: 08/02/2020 6:19 pm REASON FOR STUDY: flank pain COMPARISON: 07/22/2019 TECHNIQUE: CT scan of the abdomen and pelvis performed without intravenous or oral contrast. Images reviewed with lung, soft tissue, and bone windows. Reconstructed coronal and sagittal MPR images revi ewed. All images stored on PACS. All CT scanners at this facility use dose modulation, iterative reconstruction, and/or weight based d osing when appropriate to reduce radiation dose to as low as reasonably achievable (ALARA). [facility]: Dose Right [facility]: CareDose [facility]: Dose Right [facility]: Teradose 4D [facility]: Navitell RADIATION DOSE: mGy. LIMITATIONS: None. FINDINGS: LOWER CHEST: No significant findings. No nodules or infiltrates. NON-CONTRASTED LIVER, SPLEEN, ADRENALS: Evaluation limited by lack of IV contrast. No identified sign ificant masses. PANCREAS: No masses. No peripancreatic inflammatory changes. GALLBLADDER: No identified stones by CT criteria. No inflammatory changes to suggest cholecystitis. RIGHT KIDNEY AND URETER: No suspicious masses. Assessment limited by lack of IV contrast. No signif icant calcifications. No hydronephrosis or hydroureter. LEFT KIDNEY AND URETER: No suspicious masses. Assessment limited by lack of IV contrast. No signifi cant calcifications. No hydronephrosis or hydroureter. AORTA AND RETROPERITONEUM: No aneurysm. No retroperitoneal masses or adenopathy. BOWEL AND PERITONEAL CAVITY: No obvious masses or inflammatory changes. No free fluid. APPENDIX: Normal. PELVIS, BLADDER, AND ABDOMINAL WALL:No abnormal masses. No free fluid. Bladder normal. BONES: No significant findings. OTHER: No other significant finding. IMPRESSION: NO SIGNIFICANT OR ACUTE PROCESS IN THE ABDOMEN OR PELVIS. COMMENT: Quality ID # [id number]: Final reports with documentation of one or more dose reduction techniques (e.g., Automated exposure control, adjustment of the mA and/or kV according to patient size, use of iterative reconstruction technique) TECHNICAL DOCUMENTATION: JOB ID: [id number] 2010 [employer]- All Rights Reserved Reading location - IP/workstation name: [email or web address]
[2020-08-02 18:52] LABS: ABSOLUTE EOSINOPHILS # (AUTO) 0.1 10^3/uL (0.0-0.6); ABSOLUTE LYMPHOCYTES (AUTO) 1.2 10^3/uL (0.5-4.7); ABSOLUTE MONOCYTES (AUTO) 0.8 10^3/uL (0.1-1.4); ABSOLUTE NEUT (AUTO) 6.9 10^3/uL (1.7-8.2); BASOPHILS % (AUTO) 0.5 % (0-2); EOSINOPHILS % (AUTO) 0.7 % (0-6); HEMATOCRIT 40.6 % (37.9-51.0); HEMOGLOBIN 13.7 g/dL (13.5-17.0); LYMPHOCYTES % (AUTO) 13.3 % (13-45); MEAN CORPUSCULAR HEMOGLOBIN 30.3 pg (27.0-33.4); MEAN CORPUSCULAR HGB CONC 33.7 g/dL (32.0-36.0); MEAN CORPUSCULAR VOLUME 90 fl (80-97); PLATELET COUNT 235 10^3/uL (150-450); RED BLOOD COUNT 4.52 10^6/uL (4.35-5.55); RED CELL DISTRIBUTION WIDTH 14.1 % (11.5-14.0); SEGMENTED NEUTROPHILS % (AUTO) 76.5 % (42-78); TOTAL CELLS COUNTED % (AUTO) 100 %
[2020-08-02 19:13] LABS: ALBUMIN 4.2 g/dL (3.5-5.0); ALKALINE PHOSPHATASE 86 U/L (38-126); ANION GAP 13 (5-19); ASPARTATE AMINO TRANSFERASE 16 U/L (17-59); BILIRUBIN,DIRECT 0.1 mg/dL (0.0-0.4); BILIRUBIN,TOTAL 0.3 mg/dL (0.2-1.3); BLOOD UREA NITROGEN 25 mg/dL (7-20); CALCIUM 9.3 mg/dL (8.4-10.2); CARBON DIOXIDE 24 mmol/L (22-30); CHLORIDE 97 mmol/L (98-107); GLUCOSE 147 mg/dL (75-110); POTASSIUM 4.3 mmol/L (3.6-5.0); TOTAL PROTEIN 7.1 g/dL (6.3-8.2)
[2020-08-02] MEDS ORDERED: CEPHALEXIN 500 MG CAPSULE PO ONE (20:00)
--- NOTE | 2020-08-02 20:20 | ER Document Report ---
ED General - General Chief Complaint: Flank Pain Stated Complaint: FLANK PAIN Time Seen by Provider: 08/02/20 17:48 Primary Care Provider: GARCIA,LAURA [Primary Care Provider] - Follow up as needed Mode of Arrival: Wheelchair TRAVEL OUTSIDE OF THE [place] IN LAST 30 DAYS: No - HPI Notes: Patient is a 69-year-old male who presents the emergency department for evaluation of pain in his left lower back. It started this morning. He denies any fevers or chills. No nausea or vomiting. He is eating and drinking normally. He has had urinary frequency starting last night. He denies any gross hematuria, no dysuria. Normal bowel movements. He puts his pain currently at a 2 out of 5. Is worsened by movement, nothing seems to make it better. - Related Data Allergies/Adverse Reactions: No Known Allergies Allergy (Unverified 07/22/19 12:22) Home Medications: lisinpril, metformin, aspirin, Past Medical History - General Information source: Patient - Social History Smoking Status: Never Smoker Frequency of alcohol use: None Drug Abuse: None Family History: Reviewed & Not Pertinent - Past Medical History Cardiac Medical History: Reports: Hx Coronary Artery Disease Neurological Medical History: Reports: Hx Cerebrovascular Accident Endocrine Medical History: Reports: Hx Diabetes Mellitus Type 2 Past Surgical History: Reports: Hx Cardiac Catheterization Review of Systems - Review of Systems Constitutional: No symptoms reported EENT: No symptoms reported Cardiovascular: No symptoms reported Respiratory: No symptoms reported, Hurts to breathe Genitourinary: See HPI Musculoskeletal: See HPI Neurological/Psychological: No symptoms reported -: Yes All other systems reviewed and negative Physical Exam - Vital signs Vitals: Temp Pulse Resp BP Pulse Ox 98.2 F 62 16 136/61 H 99 08/02/20 17:56 08/02/20 17:56 08/02/20 17:56 08/02/20 17:56 08/02/20 17:56 - Notes Notes: Vital signs reviewed, please refer to chart. Head is normocephalic, atraumatic. Pupils equal round, reactive to light. Neck is supple without meningismus. Heart is regular rate and rhythm. Lungs are clear to auscultation bilaterally. Abdomen is soft, nontender, normoactive bowel sounds throughout. No CVA tenderness noted. Examination of the spine shows no midline tenderness or step- off. He has paraspinal musculature tenderness noted at L3-L4 with associated spasm on the left. Negative straight leg raise bilaterally. Strength is plus 4 out of 5 bilateral lower extremities. Sensation is intact. Extremities without cyanosis, clubbing. Posterior calves are nontender. Peripheral pulses are equal. Skin is warm and dry. Patient is awake, alert, neurological exam is nonfocal. Course - Re-evaluation Re-evalutation: 08/02/20 20:18 Patient presents to the emergency department for evaluation of pain in his left lower back with associated urinary symptoms. He is not febrile. His vital signs are unremarkable. His laboratory investigations show a very mild increase in his creatinine, but otherwise show large white blood cells in his urine. Given his symptoms he is treated for UTI. His urine is sent for culture. Blood cultures were obtained as well. The patient will be treated with Keflex. The patient has no systemic symptoms. He has no leukocytosis. Cultures are pending, I think it is reasonable to do a trial of outpatient treatment. Maxine ent and daughter are amenable to this plan. He is given his first dose of Keflex here. I will send him home on same. He is to return to the ED with worsening or new concerning symptoms of any sort. - Vital Signs Vital signs: Temp Pulse Resp BP Pulse Ox 98.9 F 67 16 128/57 H 97 08/02/20 20:09 08/02/20 20:09 08/02/20 20:09 08/02/20 20:09 08/02/20 20:09 - Laboratory Result Diagrams: 08/02/20 18:33 08/02/20 18:33 Laboratory results interpreted by me: 08/02/20 08/02/20 08/02/20 18:10 18:33 18:33 RDW 14.1 H Sodium 134.0 L Chloride 97 L BUN 25 H Creatinine 1.62 H Est GFR ( Amer) 51 L Est GFR (MDRD) Non-Af 42 L Glucose 147 H AST 16 L Urine Protein 100 H Urine Glucose (UA) 150 H Urine Blood LARGE H Ur Leukocyte Esterase LARGE H Discharge - Discharge Clinical Impression: Urinary tract infection Qualifiers: Urinary tract infection type: site unspecified Hematuria presence: with hematuria Qualified Code(s): N39.0 - Urinary tract infection, site not specified Condition: Stable Disposition: HOME, SELF-CARE Instructions: Cephalexin ([facility]), Urinary Tract Infection ([facility]) Additional Instructions: Rest, stay well-hydrated. Take your regular medications as prescribed, and be sure to take all the antibiotic as prescribed until it is gone. If you develop fevers, chills, vomiting, worsening pain, or any other new or concerning symp toms, please return immediately to the emergency department for evaluation. Referrals: [facility] [[facility]] - Follow up as needed
[2020-08-02 20:46] VITALS: BP 117/49
== END 2020-08-02 20:46 | disposition home or self-care (01) ==
LOC: ER 17:42
DX: N39.0 Urinary tract infection, site not specified (principal); R10.9 Unspecified abdominal pain; M54.5 Low back pain; R35.0 Frequency of micturition; Z79.899 Other long term (current) drug therapy; Z79.84 Long term (current) use of oral hypoglycemic drugs; Z79.82 Long term (current) use of aspirin; I25.10 Atherosclerotic heart disease of native coronary artery without angina pectoris; E11.9 Type 2 diabetes mellitus without complications
CPT/HCPCS: 36415; 74176; 80053; 81001; 82962; 83690; 85025; 87040; 87086; 87088; 87186; 99284

== ENCOUNTER 2020-09-10 10:10 | Emergency (ER) | payer OTHER, MEDICARE ==
--- NOTE | 2020-09-10 10:27 | ER Document Report ---
ED Medical Screen (RME) - General Chief Complaint: Urinary Problem Stated Complaint: BLOOD IN URINE Time Seen by Provider: 09/10/20 10:23 Primary Care Provider: GARCIA,ALURA [Primary Care Provider] - Follow up as needed Notes: Patient presents, reporting hematuria yesterday. Patient without any abdominal pain or back pain. Patient without any nausea or vomiting. Patient does report a previous history of kidney stones. Patient denies any other abnormal bleeding or bruising. I have greeted and performed a rapid initial assessment of this patient. A comprehensive ED assessment and evaluation of the patient, analysis of test results and completion of the medical decision making process will be conducted by additional ED providers. TRAVEL OUTSIDE OF THE [place] IN LAST 30 DAYS: No - Related Data Allergies/Adverse Reactions: No Known Allergies Allergy (Unverified 07/22/19 12:22) Home Medications: metformin, lisinopril, ASA Past Medical History - Social History Chew tobacco use (# tins/day): No Frequency of alcohol use: None Drug Abuse: None - Past Medical History Cardiac Medical History: Reports: Hx Coronary Artery Disease Neurological Medical History: Reports: Hx Cerebrovascular Accident Endocrine Medical History: Reports: Hx Diabetes Mellitus Type 2 Past Surgical History: Reports: Hx Cardiac Catheterization Physical Exam - Vital signs Vitals: Temp Pulse Resp BP Pulse Ox 98.1 F 64 16 146/64 H 96 09/10/20 10:14 09/10/20 10:14 09/10/20 10:14 09/10/20 10:14 09/10/20 10:14 - Back Back: Normal. No: CVA tenderness Course - Vital Signs Vital signs: Temp Pulse Resp BP Pulse Ox 98.1 F 64 16 146/64 H 96 09/10/20 10:14 09/10/20 10:14 09/10/20 10:14 09/10/20 10:14 09/10/20 10:14 Doctor's Discharge - Discharge Referrals: [facility] [Primary Care Provider] - Follow up as needed
--- NOTE | 2020-09-10 10:46 | ER Document Report ---
ED GI/ - General Chief Complaint: Urinary Problem Stated Complaint: BLOOD IN URINE Time Seen by Provider: 09/10/20 10:23 [facility]: [facility] [[facility]] - Follow up as needed Notes: CHIEF COMPLAINT: Hematuria HPI: 70-year-old male presenting for evaluation of painless hematuria that occurred last night. No hematuria today. [facility] for [facility] care and they referred him over to the ER for management. No fever. No abdominal pain. No trauma. History of type 2 diabetes, CVA x2 last year. ROS: See HPI - all other systems were reviewed and are otherwise negative Constitutional: no fever Eyes: no drainage, no blurred vision ENT: no runny nose, no sore throat Cardiovascular: no chest pain Resp: no SOB, no cough GI: no vomiting, no diarrhea, no abdominal pain : no dysuria, positive hematuria Integumentary: no rash Allergy: no hives Musculoskeletal: no extremity pain or swelling Neurological: no numbness/tingling, no weakness MEDICATIONS: I agree with the patient medications as charted by the RN. ALLERGIES: I agree with the allergies as charted by the RN. PAST MEDICAL HISTORY/PAST SURGICAL HISTORY: Reviewed and agree as charted by RN. SOCIAL HISTORY: Reviewed and agree as charted by RN. FAMILY HISTORY: No significant familial comorbid conditions directly related to patient complaint EXAM: Reviewed vital signs as charted by RN. CONSTITUTIONAL: Alert and oriented and responds appropriately to questions. Well-appearing; well-nourished HEAD: Normocephalic; atraumatic EYES: PERRL; Conjunctivae clear, sclerae non-icteric ENT: normal nose; no rhinorrhea; moist mucous membranes; pharynx without lesions noted, no uvula edema or deviation, no tonsillar hypertrophy, phonation normal NECK: Supple without meningismus; non-tender; no cervical lymphadenopathy, no masses CARD: RRR; no murmurs, no clicks, no rubs, no gallops; symmetric distal pulses RESP: Normal chest excursion without splinting or tachypnea; breath sounds clear and equal bilaterally; no wheezes, no rhonchi, no rales, pulse oximetry 98% on room air not hypoxic ABD/GI: Normal bowel sounds; non-distended; soft, non-tender, no rebound, no guarding; no palpable organomegaly or masses. BACK: The back appears normal and is non-tender to palpation, there is no CVA tenderness EXT: Normal ROM in all joints; non-tender to palpation; no cyanosis, no effusions, no edema SKIN: Normal color for age and race; warm; dry; good turgor; no acute lesions noted NEURO: Moves all extremities equally; Motor and sensory function intact PSYCH: The patient's mood and manner are appropriate. Grooming and personal hygiene are appropriate. MDM: 70-year-old male sent for evaluation of painless hematuria without fever. Initial screening labs ordered via triage process. Will add noncontrast CT to evaluate for renal colic, bladder mass. TRAVEL OUTSIDE OF THE [place] IN LAST 30 DAYS: No - Related Data Allergies/Adverse Reactions: No Known Allergies Allergy (Unverified 07/22/19 12:22) Home Medications: metformin, lisinopril, ASA Past Medical History - Social History Smoking Status: Former Smoker Chew tobacco use (# tins/day): No Frequency of alcohol use: None Drug Abuse: None Family History: Reviewed & Not Pertinent - Past Medical History Cardiac Medical History: Reports: Hx Coronary Artery Disease Neurological Medical History: Reports: Hx Cerebrovascular Accident Endocrine Medical History: Reports: Hx Diabetes Mellitus Type 2 Past Surgical History: Reports: Hx Cardiac Catheterization Physical Exam - Vital signs Vitals: Temp Pulse Resp BP Pulse Ox 98.1 F 64 16 146/64 H 96 09/10/20 10:14 09/10/20 10:14 09/10/20 10:14 09/10/20 10:14 09/10/20 10:14 Course - Re-evaluation Re-evalutation: 09/10/20 10:50 On review of the patient's prior visits on August 02, [address] that did not show any acute findings. Will hold on imaging at this time. His creatinine was mildly elevated at the time at 1.62 but he did have a UTI. 09/10/20 12:25 Patient appears to have urinary tract infection. Was discharged home on antibiotics. He does not appear septic. Afebrile, no abdominal pain on repeat exam. Will need follow-up with PCP as this is second evaluation for UTI symptoms we will also refer to urology 09/10/20 12:27 On review of prior records patient grew out Klebsiella that was sensitive to Rocephin, Cipro, Bactrim. Will place patient on Cipro given age - Vital Signs Vital signs: Temp Pulse Resp BP Pulse Ox 98.1 F 64 16 146/64 H 96 09/10/20 10:14 09/10/20 10:14 09/10/20 10:14 09/10/20 10:14 09/10/20 10:14 - Laboratory Results Result Diagrams: 09/10/20 11:15 09/10/20 11:15 Laboratory Results Interpreted: 09/10/20 09/10/20 09/10/20 10:30 11:15 11:15 RBC 4.24 L Hgb 12.5 L Hct 37.8 L RDW 14.3 H Sodium 135.6 L BUN 23 H Creatinine 1.48 H Est GFR ( Amer) 57 L Est GFR (MDRD) Non-Af 47 L Glucose 174 H Urine Blood MODERATE H Ur Leukocyte Esterase LARGE H Critical Laboratory Results Reviewed: No Critical Results - Radiology Results Critical Radiology Results Reviewed: No Critical Results Discharge - Discharge Clinical Impression: Hematuria Qualifiers: Hematuria type: unspecified type Qualified Code(s): R31.9 - Hematuria, un specified UTI (urinary tract infection) Qualifiers: Urinary tract infection type: acute cystitis Hematuria presence: with hematuria Qualified Code(s): N30.01 - Acute cystitis with hematuria Condition: Stable Disposition: HOME, SELF-CARE Instructions: Urinary Tract Infection ([facility]) Additional Instructions: Follow-up with both the [facility] and [facility]rology for further evaluation it appears your symptoms of blood in the urine are likely caused by a urinary infection. Take the Cipro as prescribed. Return for onset of fever or worsening condition Prescriptions: Ciprofloxacin HCl [Cipro 500 mg Tablet] 500 mg PO BID #14 tablet Referrals: [facility] [Primary Care Provider] - Follow up as needed SHEREEN DIXON MD [NO LOCAL MD] - Follow up as needed
[2020-09-10 11:02] LABS: APPEARANCE,URINE SLIGHTLY-CLOUDY; BILIRUBIN,URINE NEGATIVE (NEGATIVE); COLOR,URINE YELLOW; GLUCOSE, URINE NEGATIVE (NEGATIVE); KETONES,URINE NEGATIVE (NEGATIVE); LEUKOCYTE ESTERASE,URINE LARGE (NEGATIVE); NITRITE,URINE NEGATIVE (NEGATIVE); PROTEIN,URINE NEGATIVE (NEGATIVE); URINE SPECIFIC GRAVITY 1.006; UROBILINOGEN,URINE NEGATIVE mg/dL (<2.0)
[2020-09-10] MEDS ORDERED: CEFTRIAXONE 1 GM/D5W RTU 1 GM/50 ML RTUPB IV ONE (11:11)
[2020-09-10 11:56] LABS: ABSOLUTE EOSINOPHILS # (AUTO) 0.1 10^3/uL (0.0-0.6); ABSOLUTE MONOCYTES (AUTO) 0.5 10^3/uL (0.1-1.4); ABSOLUTE NEUT (AUTO) 1.9 10^3/uL (1.7-8.2); EOSINOPHILS % (AUTO) 2.3 % (0-6); HEMATOCRIT 37.8 % (37.9-51.0); HEMOGLOBIN 12.5 g/dL (13.5-17.0); LYMPHOCYTES % (AUTO) 42.9 % (13-45); MEAN CORPUSCULAR HEMOGLOBIN 29.6 pg (27.0-33.4); MEAN CORPUSCULAR HGB CONC 33.2 g/dL (32.0-36.0); MEAN CORPUSCULAR VOLUME 89 fl (80-97); MONOCYTES % (AUTO) 11.3 % (3-13); PLATELET COUNT 249 10^3/uL (150-450); RED BLOOD COUNT 4.24 10^6/uL (4.35-5.55); RED CELL DISTRIBUTION WIDTH 14.3 % (11.5-14.0); SEGMENTED NEUTROPHILS % (AUTO) 42.5 % (42-78); TOTAL CELLS COUNTED % (AUTO) 100 %; WHITE BLOOD COUNT 4.6 10^3/uL (4.0-10.5)
[2020-09-10 12:10] LABS: ANION GAP 9 (5-19); BLOOD UREA NITROGEN 23 mg/dL (7-20); CALCIUM 8.9 mg/dL (8.4-10.2); CARBON DIOXIDE 23 mmol/L (22-30); CHLORIDE 104 mmol/L (98-107); GLUCOSE 174 mg/dL (75-110); POTASSIUM 4.4 mmol/L (3.6-5.0)
[2020-09-10 13:36] VITALS: BP 130/63
== END 2020-09-10 13:36 | disposition home or self-care (01) ==
LOC: ER 10:10
DX: N30.01 Acute cystitis with hematuria (principal); E11.9 Type 2 diabetes mellitus without complications; Z86.73 Personal history of transient ischemic attack (TIA), and cerebral infarction without residual deficits; Z79.84 Long term (current) use of oral hypoglycemic drugs; Z79.899 Other long term (current) drug therapy; I25.10 Atherosclerotic heart disease of native coronary artery without angina pectoris; Z87.891 Personal history of nicotine dependence
CPT/HCPCS: 99284; 96365; 36415; 87086; 85025; 87088; 80048; 81001; 87186; J0696